=== PATIENT | female | born 1950 | race Caucasian/White ===

== ENCOUNTER 2019-04-12 15:44 | Outpatient (CLI) | payer MEDICARE, OTHER | END 2019-04-12 23:59 | disposition home or self-care (01) | LOC: CARD 15:44 | PROVIDERS: ATTEND Family Medicine | DX: R06.09 Other forms of dyspnea (principal); F17.210 Nicotine dependence, cigarettes, uncomplicated; R09.02 Hypoxemia | CPT/HCPCS: 94060; 94726; 94729 ==

== ENCOUNTER → 2019-04-12 | Outpatient (CLI) | payer MEDICARE, OTHER | END | disposition home or self-care (01) | LOC: CFH 11:13 | PROVIDERS: ATTEND Family Medicine | DX: I08.3 Combined rheumatic disorders of mitral, aortic and tricuspid valves (principal); I10 Essential (primary) hypertension; F17.210 Nicotine dependence, cigarettes, uncomplicated | CPT/HCPCS: 93306 ==

== ENCOUNTER 2020-07-09 10:15 | Outpatient (CLI) | payer MEDICARE, OTHER | END 2020-07-09 23:59 | disposition home or self-care (01) | LOC: CFH 10:15 | PROVIDERS: ATTEND Internal Medicine | DX: Z12.2 Encounter for screening for malignant neoplasm of respiratory organs (principal); J98.4 Other disorders of lung; M51.34 Other intervertebral disc degeneration, thoracic region; R91.1 Solitary pulmonary nodule; F17.210 Nicotine dependence, cigarettes, uncomplicated | CPT/HCPCS: G0297 ==

== ENCOUNTER 2021-07-02 09:51 | Outpatient (CLI) | payer MEDICARE, OTHER | END 2021-07-02 23:59 | disposition home or self-care (01) | LOC: CFH 09:51 | PROVIDERS: ATTEND Internal Medicine | DX: R91.1 Solitary pulmonary nodule (principal); J98.4 Other disorders of lung; J98.11 Atelectasis | CPT/HCPCS: 71250 ==